=== PATIENT | male | born 1985 | race Caucasian/White ===

== ENCOUNTER 2020-04-27 00:23 | Outpatient (CLI) | payer OTHER, SELFPAY ==
[2020-04-27 18:58] LABS: SARS-CoV-2 RNA PCR Negative
== END 2020-04-27 00:24 | disposition home or self-care (01) ==
LOC: ANHCOVIDDT 00:23
PROVIDERS: PCP Family Medicine; Visit Provider Plastic Surgery
DX: Z01.812 Encounter for preprocedural laboratory examination (principal); Z20.828 Contact with and (suspected) exposure to other viral communicable diseases
CPT/HCPCS: 87635; C9803; U0003

== ENCOUNTER 2020-04-29 01:38 | Day surgery (SDC) | payer OTHER, SELFPAY ==
[2020-04-19 10:32] VITALS: BMI 21.2
--- NOTE | 2020-04-28 15:13 | HP_ITS ---
DATE OF SERVICE: 04/29/2020 PREOPERATIVE DIAGNOSIS: Left dorsal wrist ganglion cyst. HISTORY: The patient is 34. He is left-hand dominant. He is a male nava who is having pain in the dorsum of his wrist. This has been going on for more than 6 months and has dissipated for short period during that time. This mass is approximately 2 cm in diameter and is elevated, intermittently painful. No sign of infection. He has a smooth dome-shaped mass. He is aware that excision of this will produce a scar, could produce some numbness, the recovery can be longer than he is anticipating, possible need for therapy and a 10% chance of recurrence. He would like to proceed. ALLERGIES: HE HAS NO KNOWN ALLERGIES TO MEDICATION. MEDICATIONS: He takes no chronic medications. PRIOR SURGERIES: He has had no prior surgeries. He lists no chronic ailments. He is a smoker, however. REVIEW OF SYSTEMS: Otherwise negative. FAMILY HISTORY: Noncontributory. SOCIAL HISTORY: He lives in [place]. He works for [employer] PHYSICAL EXAMINATION: VITAL SIGNS: He is 6 feet 4 inches and weighs 175 pounds. GENERAL: He is alert, informative, and cooperative. HEENT: Unremarkable. CHEST: Clear to auscultation. HEART: Regular rate and rhythm by palpation. ABDOMEN: Soft and nontender. EXTREMITIES: Normal with the exception of this mass that produces tenderness with passive extension, particularly. ASSESSMENT: Ganglion cyst at the left dorsal wrist interfering with daily activities. PLAN: Excision under MAC anesthetic. D I MT: Tram
[2020-04-29] MEDS: LACTATED RINGERS 1,000 ML 30 ML IV CONT ×2 (09:55→13:13)
[2020-04-29 10:00] VITALS: BP 108/52; PULSE 58; RESP 16; TEMP 36.8; O2SAT 100
--- NOTE | 2020-04-29 10:27 | WPDANESEPPF ---
Anes - Initial Pre Proc Eval Procedure: Operation Date: 04/29/20 12:00 Proposed Procedures p Excision Left Dorsal Wrist Ganglion Cyst - Javier Herzog MD Date/Time: 04/29/20 10:27 Surgeon: Javier Herozg MD Pre Op Diagnosis: left dorsal wrist ganglion cyst Patient Data Age: 34 Gender: M Height: 6 ft 4 in Weight: 76.3 kg Last Vital Signs Temp 36.8 C 04/29/20 10:00 Pulse 58 L 04/29/20 10:00 Resp 16 04/29/20 10:00 BP 108/52 L 04/29/20 10:00 Pulse Ox 100 04/29/20 10:00 Allergies Allergy/AdvReac Type Severity Reaction Status Date / Time No Known Allergies Allergy Unverified 04/29/20 10:11 Home Medications Medication Instructions Recorded Confirmed Type No Home Medications 04/19/20 04/29/20 History Patient hx anesthesia problems: none Family hx anesthesia problems: none PMFSH Family History Family History Father Hypertension Acute myocardial infarction Social History Social History Smoking status: Light tobacco smoker Second hand tobacco smoke exposure: No Alcohol intake: never Anes - Eval Final PreProcedure Day of Procedure 04/29/20 10:27 Patient weight: normal Heart: regular rate and rhythm Lungs: clear to auscultation Airway: Mallampati scale class II Neurological: alert and oriented Last oral intake: >/= 8 hours ASA classification: II Emergent: no Anesthetic plan: proceed Anesthesia type and monitoring: general GIVS Informed Consent: The patient's anesthetic plan and its attendant risks and benefits were discussed with the patient/family/POA. Questions were solicited and answers provided to the satisfaction of the patient/family/POA.
--- NOTE | 2020-04-29 12:25 | WPDHPUPDATE1 ---
History and Physical Update Update Date/Time: 04/29/20 12:25 History and Physical has been reviewed, including an updated exam of the patient. There are NO changes in the patient's condition. Risks, benefits, and alternatives have been discussed and questions answered. Patient agrees to proceed with procedure.
[2020-04-29] MEDS: LIDO 1%/EPINEPHRINE 1:100,000 20 ML VIAL 8 ML INFILTRATE (12:34)
[2020-04-29 13:15] VITALS: BP 110/70; PULSE 47; RESP 12; O2SAT 100
--- NOTE | 2020-04-29 13:36 | PM.PROC ---
Procedure Note - Detailed Date of procedure: 04/29/20 Pre-op diagnosis: left dorsal wrist ganglion cyst Left dorsal wrist ganglion cyst Post-op diagnosis: same Procedure performed: Excision of left dorsal wrist ganglion cyst Description of procedure: The site was marked on the patient's wrist as he waited in the holding area. He was rolled to the operating room where he was placed supine on the operating table. The site was prepped and draped in the usual fashion as he was given IV sedation. The site was remarked for incision and locally infiltrated with 1% lidocaine with epinephrine. The tourniquet was inflated to 250 mmHg. The transverse incision was made and dissection was carried through the subcutaneous tissue retracting large the veins to the side. At the level of the extensor tendon the cyst was identified and dissected around its periphery. We then opened the cyst and drained it. We were able to follow the sac down to its origin at the wrist capsule. The carefully explored this area and removed all that we could without opening the joint. The area origin was over sewed with the 3-0 Ethibond [id number] suture. The subcutaneous tissue was repaired with 4-0 Monocryl. The dermis was closed with 4-0 Monocryl. A soft flexible bandaged with Coban wrap was applied. The patient is discharged with instructions in wound care and follow-up and a prescription for hydrocodone number 12 Surgeon: Javier Herzog MD
[2020-04-29 13:45] VITALS: BP 108/66; PULSE 53; RESP 12; O2SAT 100
--- NOTE | 2020-04-29 13:50 | SUR.PHASEII ---
[id number] spouse called for an update on pt, pt in outpt still sleeping, dr bhandari spoke with spouse and updated her on procedure
[2020-04-29 14:05] VITALS: BP 120/78; PULSE 56; RESP 12
== END 2020-04-29 14:21 | disposition home or self-care (01) ==
PROVIDERS: PCP Family Medicine; Visit Provider Plastic Surgery
PROC: (CPT 25111; principal; 2020-04-29 12:00)
DX: M67.432 Ganglion, left wrist (principal); F17.200 Nicotine dependence, unspecified, uncomplicated
CPT/HCPCS: 25111; A9270; J2250; J2704; J3010; J7120

== ENCOUNTER 2022-07-23 19:34 | Emergency (ER) | payer OTHER, SELFPAY ==
--- NOTE | 2022-07-23 19:36 | ED.DENTAL ---
HPI - Dental/Oral General Chief complaint: Dental/Oral Stated complaint: tooth pain Time Seen by Provider: 07/23/22 19:36 Source: patient Mode of arrival: ambulatory Limitations: no limitations History of Present Illness HPI Narrative: Mr. Ramírez is a 37-year-old male patient presenting to the clinic today with complaints dental pain x1 day He reports he noticed the swelling beginning yesterday. He complains of pain over the maxillary sinuses. Has multiple decayed teeth and broken teeth. He denies any fever or chills Related Data Allergies Allergy/AdvReac Type Severity Reaction Status Date / Time No Known Allergies Allergy Verified 07/23/22 19:44 Review of Systems Review of Systems: Pertinent positives per HPI. Patient denies any fever, chills, rash, headache, visual changes, dizziness, cough, runny nose, sore throat, shortness of breath, chest pain, palpitations, nausea, vomiting, diarrhea, constipation, abdominal pain, or any urinary issues. [facility] Family History Family History Father Hypertension Acute myocardial infarction Social History Social History Smoking status: Light tobacco smoker Second hand tobacco smoke exposure: No Alcohol intake: never Comments At the time of my signature, I reviewed and agree with the nursing past medical, surgical, social, and family history. There is no relevant family history pertinent to the patient complaint. Exam Narrative: General: Well-developed, well nourished, in no apparent distress Head: Normocephalic, atraumatic Eyes: Pupils equally round and reactive to light bilaterally, EOM intact, sclera and conjunctive clear, no discharge, lids normal Ears: TMs intact and clear, ear canals clear, no drainage, grossly hearing normal. Nose: Nares patent, no discharge, no inflammation, no sinus tenderness. Mouth: Oropharynx without lesions or masses, very poor dentition with multiple decayed and broken teeth, tender to palpation with swelling to the left upper maxillary with swollen gum and fractured gait canine tooth, no fluctuance palpable, MMM. Neck: Supple, trachea midline, no enlargement of anterior or posterior cervical nodes, no thyroid masses or goiter palpable. Cardio: Regular rate and rhythm, s1 and s2 normal, no murmur appreciated. Resp: Clear to auscultation bilaterally anteriorly and posteriorly, no rhonchi, rales, wheezing or rubs Course Course Emergency Course: Portions of this record may have been created with voice recognition software. Level of Care: Express Care Visit Vital Signs Vital signs: Vital signs reviewed MDM - Dental/Oral MDM Narrative Medical decision making narrative: At the time of exam patient was resting comfortably on the exam table. I suspect the patient has a beginning of a dental abscess. Supportive measures were discussed with the patient he voiced understanding of discharge instructions. We will send in prescription for Augmentin. Differential Diagnosis Differential diagnosis: Likely gingival abscess, dental caries, toothache, dental abscess and fracture of tooth Discharge Plan Discharge Clinical Impression: Abscess, dental Patient Disposition: Home, Self-Care Condition: Stable Instructions: Antibiotic Form, Dental Abscess (ED) Additional Instructions: May take Tylenol/Motrin as needed for pain or fever Take Augmentin as prescribed May use heat or ice pack to the affected area Follow-up with your PCP in 3 to 5 days if symptoms persist or sooner if they worsen Follow-up with your dentist as soon as possible Prescriptions: New amoxicillin-pot clavulanate 875-125 mg tablet 1 tablet PO Q12H 10 Days Qty: 20 0RF Follow-up/Referrals: UNKNOWN,DOCTOR [Non-Staff] - Time of Disposition: 19:46 Quality NIHSS Nursing Documentation ED NIHSS nursing documentation: revi
[2022-07-23 19:40] VITALS: BP 120/54; PULSE 60; RESP 16; TEMP 37.3; O2SAT 100
== END 2022-07-23 19:49 | disposition home or self-care (01) ==
PROVIDERS: Emergency Provider Nurse Practitioner Family
DX: K04.7 Periapical abscess without sinus (principal)
CPT/HCPCS: 99213; G0463

== ENCOUNTER 2023-04-02 15:14 | Emergency (ER) | payer OTHER, SELFPAY ==
[2023-04-02 15:20] VITALS: BP 114/65; PULSE 76; RESP 20; TEMP 37.4; O2SAT 99
--- NOTE | 2023-04-02 15:34 | ED.DENTAL ---
HPI - Dental/Oral General Chief complaint: Dental/Oral Stated complaint: Abcess tooth Source: patient and RN notes reviewed History of Present Illness HPI Narrative: 37-year-old male presents to urgent care with complaints of left upper dental pain and left facial swelling that started today. Patient states he has a history of dental abscesses. Patient has called and made an appointment today with [facility] for an appt. Patient denies any visual disturbance, fevers, chills, trouble swallowing, vomiting. Patient has been taking naproxen at home with minimal relief. Some parts of this dictation were generated by voice recognition software and may contain typographical and/or grammatical inaccuracies. Related Data Allergies Allergy/AdvReac Type Severity Reaction Status Date / Time No Known Allergies Allergy Verified 04/02/23 15:19 Review of Systems Review of Systems: Pertinent positives and pertinent negatives per HPI. [facility] Family History Family History Father Hypertension Acute myocardial infarction Social History Social History Smoking status: Light tobacco smoker Second hand tobacco smoke exposure: No Alcohol intake: never Comments At the time of my signature, I reviewed and agree with the nursing past medical, surgical, social, and family history. There is no relevant family history pertinent to the patient complaint. Exam Narrative: GENERAL: This is a well-nourished, well-developed patient, in no apparent distress. HEAD: normocephalic, atraumatic. EYES: Sclera clear/white. Vision is grossly intact. EARS: External ears normal, auditory canals clear and without drainage, TMs normal without perforation. Hearing grossly intact. NOSE: External nose normal with no obvious nasal discharge, nares without redness, no rhinorrhea. THROAT: Mucous membranes moist, posterior pharynx clear. MOUTH: Tooth number 11 noted to be broken adjacent swelling extending up to left upper cheek. NECK: Neck supple, non-tender without lymphadenopathy, masses or thyromegaly. CARDIOVASCULAR: Regular rate RESPIRATORY: No respiratory distress SKIN: warm, intact with no suspicious lesions or rash, good texture and turgor. NEURO: awake, alert, and oriented to person, place and time. There were no obvious focal neurologic abnormalities. Course Course Level of Care: Express Care Visit Vital Signs Vital signs: Vital Signs Temperature 99.3 F 04/02/23 15:20 Pulse Rate 76 04/02/23 15:20 Respiratory Rate 20 04/02/23 15:20 Blood Pressure 114/65 04/02/23 15:20 Pulse Oximetry 99 04/02/23 15:20 Oxygen Delivery Room Air 04/02/23 15:20 Temperature 99.3 F 04/02/23 15:20 Pulse Rate 76 04/02/23 15:20 Respiratory Rate 20 04/02/23 15:20 Blood Pressure 114/65 04/02/23 15:20 Pulse Oximetry 99 04/02/23 15:20 Oxygen Delivery Room Air 04/02/23 15:20 Reviewed MDM - Dental/Oral MDM Narrative Medical decision making narrative: Take antibiotic until it's gone. Brushing teeth at least twice daily with gentle flossing. Avoid temperature extremes when you eat. Salt gargle to rinse your mouth after every meal You may apply ice to the face to reduce pain/swelling. For pain, you may take: Tylenol 650-1000mg by mouth every 4-6 hours. Do not exceed 4000mg in 24 hours. Advil (Ibuprofen) 600 mg by mouth every 6 hours. Do not exceed 2400mg in 24 hours. Also, recommend regular dental check up one-two times a year to prevent tooth decay and other periodontal disease. Follow-up with the dentist as soon as possible. See the list provided May call Miquel @ the [address] [address] hrs: Mon-Fri 8:30-5:00 Sat 8-noon [facility] [phone] QI Aranda
== END 2023-04-02 15:54 | disposition home or self-care (01) ==
PROVIDERS: Emergency Provider Nurse Practitioner Family
DX: K04.7 Periapical abscess without sinus (principal); F17.200 Nicotine dependence, unspecified, uncomplicated
CPT/HCPCS: 99213; G0463

== ENCOUNTER 2023-05-29 13:48 | Emergency (ER) | payer OTHER, SELFPAY ==
--- NOTE | 2023-05-29 13:50 | ED.EYEPROB ---
HPI - Eye Problem General Chief complaint: Eye Problems Stated complaint: Right Eye Irritation Time Seen by Provider: 05/29/23 13:57 Source: patient, RN notes reviewed and old records reviewed Mode of arrival: ambulatory Limitations: no limitations History of Present Illness HPI Narrative: 37-year-old male presents to the [facility] with complaints of saw dust to his right eye. States that he has tried using Visine, states that is still very painful. Denies any change in vision. Unknown last tetanus Related Data Allergies Allergy/AdvReac Type Severity Reaction Status Date / Time No Known Allergies Allergy Verified 04/02/23 15:19 Review of Systems Review of Systems: All systems reviewed & are unremarkable except as noted in HPI and below Constitutional: Constitutional: Reports no additional constitutional complaints Eyes: Eyes: Reports as per HPI ENT: Reports system reviewed and no additional complaints, except as documented Cardiovascular: Cardiovascular: Reports no additional cardiovascular complaints, Denies chest pain and Denies dyspnea Respiratory: Respiratory: Reports no additional respiratory complaints, Denies chest congestion, Denies cough and Denies dyspnea Gastrointestinal: Gastrointestinal: Reports no additional gastrointestinal complaints, Denies abdominal pain, Denies nausea and Denies vomiting Musculoskeletal: Musculoskeletal: Reports no additional musculoskeletal complaints Integumentary/Breasts: Skin/Breast: Reports system reviewed and no additional complaints, except as docu Neurologic: Reports system reviewed and no additional complaints, except as documented Psychiatric: Psychiatric: Reports no additional psychiatric complaints Allergic/Immunologic: Allergic/Immunologic: Reports no additional allergic/immunologic complaints PMFSH Family History Family History Father Hypertension Acute myocardial infarction Social History Social History Smoking status: Light tobacco smoker Second hand tobacco smoke exposure: No Alcohol intake: never Comments At the time of my signature, I reviewed and agree with the nursing past medical, surgical, social, and family history. There is no relevant family history pertinent to the patient complaint. Exam Const: General: cooperative, healthy appearing, comfortable, no acute distress, well developed, alert and well nourished Nutritional Appearance: well nourished Orientation/consciousness: patient oriented x3 Limitations: no limitations HENMT: Head: normal to inspection Ears: hearing grossly normal bilaterally and external ears normal Face/Nose/Sinus: Normal external nose present, Normal nares present, Normal nasal mucous membranes and turbinates present and normal facial exam Face and sinus: normal facial exam Mouth: Yes Normal oral and palatal mucosa present, Yes lip normal and Yes moist mucous membranes Throat: posterior oropharynx normal and uvula midline Eyes: General: appearance normal, both eyes and all related structures Alignment and Position: alignment normal Periorbital: periorbital findings normal Conjunctivae: conjunctivae normal Cornea: corneas abnormal on the right fluorescein used and abrasion linear and at the following clock position (11-12); with no foreign body noted and fluorescein used Pupils: Equal, round and reactive pupils present EOM: EOMs intact bilaterally Other: Topical anesthetic was instilled with good anesthesia using 1gtt of opth anesthetic agent (tetracaine). Fluorescein stain of the R eye was performed with uptake of dye. Abrasion noted to the upper portion of the iris, no covering of pupil. NO foreign body noted to the Upper lid or lower lid, upper lid was everted and no FB or lesions were noted. NO Monse sign. Normal saline irrigation eye solution was performed and the patient tolerated the procedure well,
[2023-05-29 13:54] VITALS: BP 130/63; PULSE 58; RESP 16; TEMP 36.8; O2SAT 97
[2023-05-29] MEDS: TETANUS,DIPHTHERIA,AC PERTUSSIS ADULT (0.5 ML) BOOSTRIX IM (14:28)
== END 2023-05-29 14:30 | disposition home or self-care (01) ==
PROVIDERS: Emergency Provider Nurse Practitioner
DX: S05.01XA Injury of conjunctiva and corneal abrasion without foreign body, right eye, initial encounter (principal); T15.91XA Foreign body on external eye, part unspecified, right eye, initial encounter; Z23 Encounter for immunization
CPT/HCPCS: 90471; 90715; 99213; A9270; G0463

== ENCOUNTER 2025-05-02 20:11 | Emergency (ER) | payer OTHER, SELFPAY ==
--- OUTSIDE RECORDS SUMMARY | 2025-05-02 20:13 | XMS_ITS | Clinical Summary ---
Author Organization [facility] Address [address] [place] [address] Care Team Providers Care Deicer Inspector Pneumatic Name Role Phone No, Physician Primary Care Provider [phone] Unknown, Notinfile Unavailable Unavailable Ben Quiles MD Unavailable [phone] Allergies No known active allergies Medications naproxen (ALEVE) 220 mg tablet Take 2 tablets (440 mg total) by mouth every 12 (twelve) hours as needed for pain Active ondansetron ODT (ZOFRAN-ODT) 8 mg disintegrating tablet Take 1 tablet (8 mg total) by mouth every 8 (eight) hours as needed for nausea or vomiting 30 tablet Active Active Problems Problem Noted Date Diagnosed Date Tobacco abuse counseling 07/25/2024 Family history of ischemic heart disease 024 Sinus bradycardia 05/12/2024 Chest pain, unspecified type 05/12/2024 Encounters Date Type Department Care Team Description 04/30/2025 6:25 AM CDT - 04/30/2025 9:02 AM CDT Emergency [facility] Emergency Department [address] [place] [address] Hakan Dennis MD Concussion with unknown loss of consciousness status, initial encounter (Primary Dx) Discharge Disposition: Discharge to home or self care from Last 3 Months Medical History Medical History Date Comments Smoker Kidney stone Social History Tobacco Use Types Packs/Day Years Used Date Smoking Tobacco: Every Day Cigarettes 0.8 15 Tobacco Cessation:Ready to Q uit: Not Asked; Counseling Given: Not Answered Alcohol Use Standard Drinks/Week Comments Yes 0 (1 standard drink = 0.6 oz pur e alcohol) socially AUDIT-C Answer Date Recorded Q1: How often do you have a drink containing alc ohol? 2-4 times a month 05/12/2024 Q2: How many drinks containi ng alcohol do you have on a typical day when you are drinking? 1 or 2 05/12/2024 Q3: How often do you have si x or more drinks on one occasion? Never 05/12/2024 Personal Safety Answer Date Recorded Have you ever been in or are you currently in a harmful physical or emotional relationship or is someone making you feel afraid or unsafe? 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 Gender Identity Not on file Sexual Orientation Not on file Obstetrics History Last Filed Vital Signs Vital Sign Reading Time Taken Comments Blood Pressure 127/78 04/30/2025 8:30 AM CDT Pulse 57 04/30/2025 8:30 AM CDT Temperature 36.2 C (97.1 F) 04/30/2025 3:31 AM CDT Respiratory Rate 16 04/30/2025 7:15 AM CDT Oxygen Saturation 96% 04/30/2025 8:30 AM CDT Inhaled Oxygen Concentration - - Weight 81.6 kg (180 lb) 04/30/2025 3:31 AM CDT Height 193 cm (6' 4) 04/30/2025 3:31 AM CDT Body Mass Index 21.91 04/30/2025 3:31 AM CDT Plan of Treatment Health Maintenance Due Date Last Done Comments Depression Screening 1983 Hepatitis C Screening 1983 Varicella Vaccines (1 of 2 - 13+ 2-dose series) 1996 Hepatitis B Screening 2001 Regular Well Visit/Exam 18-64 2001 Pneumococcal vaccine <65 (1 of 2 - PCV) 2002 Covid-19 Vaccine (3 - 2023-2 5 season) 2024 07/09/2021, 06/11/2021 Influenza Vaccine (Season Ended) 2025 DTaP/Tdap/Td Vaccine (2 - Td or Tdap) 05/29/2033 05/29/2023 HPV Vaccines Aged Out No longer eligi ble based on patient's age to complete this topic Procedures Procedure Name Priority Date/Time Associated Diagnosis Comments EGFR STAT 04/30/2025 7:40 AM CDT DIFFERENTIAL AUTO STAT 04/30/2025 7:4 0 AM CDT COMPREHENSIVE METABOLIC PANEL STAT 04/30/2025 7:40 AM CDT CBC WITH AUTO DIFFERENTIAL STAT 04/30/2025 7:40 AM CDT LIPASE Add-On 04/30/2025 7:[address] HEAD WO CONTRAST ED 04/30/2025 5 :43 AM CDT from Last 3 Months Results * eGFR (04/30/2025 7:40 AM CDT) eGFR 78 >=60 mL/min/1. 73 m2 Comment: Interpretive Data Reference Interval Normal >/= 90 mL/min/1.73m2 Mildly decreased* 60 - 89 mL/min/1.73m2 Mildly to moderately decreased 45 - 59 mL/min/1.73m2 Moderately to severely decreased 30 - 44 mL/min/1.73m2 Severely decreased 15 - 29 mL/min/1.73m2 Kidney Failure < 15 mL/min/1.73m2 *Relative to young adult level Estimated glomerular filtration rate is determined by the 2020 CKD-EPI equation recommended by the National Kidney Foundation (A Unifying Approach to GFR Estimation: Recommendations of the NKF-ASK Task Force on Reassessing the Inclusion of Race in Diagnosing Kidney Disease, JASN 2020). The CKD-EPI equation should not be used for patients with unstable renal function and has not been validated in children and those over 70. Current interpretive data was last reviewed 2021. Blood 04/30/2025 7:40 AM CDT 04/30/2025 7:43 AM CDT us Hakan Dennis MD LAB BLOOD ORDERABLE S Final Result [facility] ([place]) 1 [facility] [place] [address] * (ABNORMAL) Differential, auto (04/30/2025 7:40 AM CDT) Neutrophil abs 10.81(H) 1.50 - 6.50 K/cumm Imm gran abs 0.04 0.00 - 0.10 K/cumm [facility] ([place]) Lymphocyte abs 0.86 0.80 - 3.30 K/cumm [facility] ([place]) Monocyte abs 0.16(L) 0.20 - 0.80 K/cumm [facility] ([place]) Eosinophil abs 0.02 0.00 - 0.50 K/cumm [facility] ([place]) Basophil abs 0.02 0.00 - 0.10 K/cumm [facility] ([place]) Neutrophil pct 90.8 % [facility] ([place]) Comment: Interpretive Data Percent cell count reference ranges are not reported, since discordance with absolute values may lead to misinterpretation of CBC data. Current Interpretive Data was last revised on 2018. Imm gran pct 0.3 % [facility] ([place]) Comment: Interpretive Data Percent cell count reference ranges are not reported, since discordance with absolute values may lead to misinterpretation of CBC data. Current Interpretive Data was last revised on 2018. Lymphocyte pct 7.2 % [facility] ([place]) Comment: Interpretive Data Percent cell count reference ranges are not reported, since discordance with absolute values may lead to misinterpretation of CBC data. Current Interpretive Data was last revised on 2018. Monocyte pct 1.3 % [facility] ([place]) Comment: Interpretive Data Percent cell count reference ranges are not reported, since discordance with absolute values may lead to misinterpretation of CBC data. Current Interpretive Data was last revised on 2018. Eosinophil pct 0.2 % [facility] ([place]) Comment: Interpretive Data Percent cell count reference ranges are not reported, since discordance with absolute values may lead to misinterpretation of CBC data. Current Interpretive Data was last revised on 2018. Basophil pct 0.2 % [facility] ([place]) Comment: Interpretive Data Percent cell count reference ranges are not reported, since discordance with absolute values may lead to misinterpretation of CBC data. Current Interpretive Data was last revised on 2018. Blood 04/30/2025 7:40 AM CDT 04/30/2025 7:43 AM CDT us Hakan Dennis MD LAB BLOOD ORDERABLE S Final Result [facility] ([place] 1 [facility] [place] [address] * (ABNORMAL) CBC with auto differential (04/30/2025 7:40 AM CDT) WBC 11.91(H) 3.80 - 9.90 K/cumm Hgb 14.5 13.0 - 17.5 g/dL [facility] ([place]) Hct 41.6 38.9 - 50.3 % [facility] ([place]) Plt 206 150 - 400 K/cumm [facility] ([place]) MPV 9.2 9.1 - 12.3 fL [facility] ([place]) RBC 4.78 4.30 - 5.80 M/cumm [facility] ([place]) MCV 87.0 81.3 - 96.4 fL [facility]) MCH 30.3 27.1 - 33.3 pg [facility] ([place]) MCHC 34.9 32.3 - 35.7 g/dL [facility] ([place]) RDW CV 12.5 11.1 - 14.9 % [facility]) RDW SD 40.0 35.7 - 48.1 fL [facility] ([place]) NRBC abs 0.00 0.00 - 0.01 K/cumm [facility] ([place]) Blood 04/30/2025 7:40 AM CDT 04/30/2025 7:43 AM CDT us Hakan Dennis MD LAB BLOOD ORDERABLE S Final Result [facility] ([place] 1 [facility] [place] [address] * Lipase (04/30/2025 7:40 AM CDT) Lipase 17 10 - 99 Units/L Blood 04/30/2025 7:40 AM CDT 04/30/2025 7:43 AM CDT Hakan Dennis MD LAB BLOOD ORDERABLE S Final Result [facility] ([place]) 1 [facility] [place] [address] * (ABNORMAL) Comprehensive metabolic panel (04/30/2025 7:40 AM CDT) Sodium 141 135 - 145 mmol/L Potassium, pl 4.0 3.3 - 4.9 mmol/L [facility] Comment:Moderately Hemolyzed Specimen. Results may be affected. Chloride 104 97 - 110 mmol/L [facility] ([place]) CO2 22 22 - 32 mmol/L [facility] ([place]) Anion gap 16(H) 2 - 15 mmol/L [facility] ([place]) BUN 20 6 - 25 mg/dL [facility] Creatinine 1.20 0.80 - 1.30 mg/dL [facility] ([place]) Glucose 138 70 - 199 mg/dL [facility] Comment: Interpretive Data Fasting glucose >/= 126 mg/dl is diagnostic for diabetes. Fasting is defined as no caloric intake for at least 8 hours. Fasting glucose between 100 mg/dl to 125 mg/dl is diagnostic of prediabetes. In a patient with classic symptoms of hyperglycemia or hyperglycemic crisis, a random glucose >/= 200 mg/dl is diagnostic for diabetes. In the absence of unequivocal hyperglycemia, results should be confirmed by repeat testing. The classification and Diagnosis of Diabetes Diabetes Care 202; 46: S19-S40. Current interpretive data was last revised 2022. Calcium 9.0 8.5 - 10.3 mg/dL [facility] ([place]) Bilirubin, total 0.6 0.1 - 1.2 mg/dL [facility] ([place]) Protein, pl 7.5 6.5 - 8.5 g/dL [facility] ([place]) Albumin 4.5 3.5 - 5.0 g/dL [facility] ([place]) Alk phos 94 40 - 130 Units/L [facility] ([place]) ALT 14 7 - 55 Units/L [facility] ([place]) Comment: Hemolysis present. Results may be affected. Moderately Hemolyzed Specimen AST 28 10 - 50 Units/L [facility] ([place]) Comment: Hemolysis present. Results may be affected. Moderately Hemolyzed Specimen Blood 04/30/2025 7:40 AM CDT 04/30/2025 7:43 AM CDT us Hakan Dennis MD LAB BLOOD ORDERABLE S Final Result [facility] ([place]) 1 [facility] [place] [address] * CT Head WO Contrast (04/30/2025 5:43 AM CDT) Anatomical Region Laterality Modality Head and Neck N/A Computed Tomogra phy 04/30/2025 6:03 AM CDT Narrative 04/30/2025 6:05 AM CDT EXAM DESCRIPTION: CT HEAD WO CONTRAST REASON FOR STUDY: Headache, increasing frequency or severity Patient struck his head at work yesterday. Vomiting x 1 hour. Patient unable to lay still. TECHNIQUE: Axial images acquired through the brain without intravenous contrast. Coronal and sagittal reformats were performed. Images stored on PACS. Automated mA/kV exposure control was used as a dose optimization technique for this examination and patient examination was performed in strict accordance with principles of ALARA. COMPARISON: None. FINDINGS: BRAIN: No hemorrhage, edema or mass effect. No recent infarct. Normal white matter. EXTRA-AXIAL SPACES: No fluid collections. No masses. CALVARIUM: No fracture. SINUSES/MASTOIDS: No fluid or mucosal thickening. ORBITS: No significant abnormality. OTHER: No other significant abnormality. IMPRESSION: No acute intracranial abnormality. THIS IS AN ELECTRONICALLY VERIFIED FINAL REPORT 04/30/2025 6:05 AM - Electronically signed by Fabiana Disla M.D. SN: Report ID: [id number] Reading Location: [id number] Procedure Note Fabiana Disla MD - 04/30/2025 EXAM DESCRIPTION: CT HEAD WO CONTRAST REASON FOR STUDY: Headache, increasing frequency or severity Patient struck his head at work yesterday. Vomiting x 1 hour. Patientunable to lay still. TECHNIQUE: Axial images acquired through the brain without intravenous contrast. Coronal and sagittal reformats were performed. Images storedon PACS. Automated mA/kV exposure control was used as a dose optimization technique for this examination and patient examination was performed instrict accordance with principles of ALARA. COMPARISON: None. FINDINGS: BRAIN: No hemorrhage, edema or mass effect. No recent infarct. Normal white matter. EXTRA-AXIAL SPACES: No fluid collections. No masses. CALVARIUM: No fracture. SINUSES/MASTOIDS: No fluid or mucosal thickening. ORBITS: No significant abnormality. OTHER: No other significant abnormality. IMPRESSION: No acute intracranial abnormality. THIS IS AN ELECTRONICALLY VERIFIED FINAL REPORT 04/30/2025 6:05 AM - Electronically signed by Fabiana Disla M.D. SN: Report ID: [id number] Reading Location: [id number] Deni Griffin MD IMG CT PROCEDURES Final Resul t from Last 3 Months Insurance [facility] HMO/PPO Address: [address] [address] [place] [address] [facility] H[facility]/PPO Address: [address] [place] [id number] Advance Directives For more information, please contact: [phone] * Full Code (Latest Code Status on File) Date Activated Date Inactivated Comments 05/12/2024 3:05 PM 05/13/2024 6:39 PM Care Teams Deicer Inspector Pneumatic Relationship Specialty Start Date End Date No, Physician PCP - General 07/05/17 Unknown, Notinfile 05/13/24 Ben Quiles MD [facility] [place] [id number] Consulting Physician Cardiovascular Disease 05/13/24
--- OUTSIDE RECORDS SUMMARY | 2025-05-02 20:13 | XMS_ITS | Referral Summary ---
Author Organization [facility] Address [address] [place] [address] Care Team Providers Care Certified Nutritionist Name Role Phone No, Physician Primary Care Provider [phone] Unknown, Notinfile Unavailable Unavailable Ben Quiles MD Unavailable [phone] Encounters Date Type Department Care Team Description 04/30/2025 6:25 AM CDT - 04/30/2025 9:02 AM CDT Emergency [facility] Emergency Department [address] [place] [id number] Hakan Dennis MD Concussion with unknown loss of consciousness status, initial encounter (Primary Dx) Discharge Disposition: Discharge to home or self care from Last 3 Months Allergies No known active allergies Medications naproxen (ALEVE) 220 mg tablet Take 2 tablets (440 mg total) by mouth every 12 (twelve) hours as needed for pain Active ondansetron ODT (ZOFRAN-ODT) 8 mg disintegrating tablet Take 1 tablet (8 mg total) by mouth every 8 (eight) hours as needed for nausea or vomiting 30 tablet 5 Active Active Problems Problem Noted Date Diagnosed Date Tobacco abuse counseling 07/25/2024 Family history of ischemic heart disease 024 Sinus bradycardia 05/12/2024 Chest pain, unspecified type 05/12/2024 Social History Tobacco Use Types Packs/Day Years [...] on file 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 Gender Identity Not on file Sexual Orientation Not on file Last Filed Vital Signs Vital Sign Reading [...] 04/30/2025 3:31 AM CDT Plan of Treatment Not on file Procedures Procedure Name Priority Date/Time Associated Diagnosis [...] MD LAB BLOOD ORDERABLE S Final Result [facility] ([place]) 1 [facility] [place] [address] * (ABNORMAL) Differential, auto (04/30/2025 7:40 AM CDT) Neutrophil abs 10.81(H) 1.50 - 6.50 K/cumm Imm gran abs 0.04 0.00 - 0.10 K/cumm [facility] ([place]) Lymphocyte abs 0.86 0.80 - 3.30 K/cumm [facility] ([place]) Monocyte abs 0.16(L) 0.20 - 0.80 K/cumm [facility] ([place]) Eosinophil abs 0.02 0.00 - 0.50 K/cumm [facility] ([place]) Basophil abs 0.02 0.00 - 0.10 K/cumm [facility] ([place]) Neutrophil pct 90.8 % [facility] ([place]) Comment: Interpretive Data Percent cell count reference ranges are not reported, since discordance with absolute values may lead to misinterpretation of CBC data. Current Interpretive Data was last revised on 2018. Imm gran pct 0.3 % [facility] ([place]) Comment: Interpretive Data Percent cell count reference ranges are not reported, since discordance with absolute values may lead to misinterpretation of CBC data. Current Interpretive Data was last revised on 2018. Lymphocyte pct 7.2 % [facility] ([place]) Comment: Interpretive Data Percent cell count reference ranges are not reported, since discordance with absolute values may lead to misinterpretation of CBC data. Current Interpretive Data was last revised on 2018. Monocyte pct 1.3 % [facility] ([place]) Comment: Interpretive Data Percent cell count reference ranges are not reported, since discordance with absolute values may lead to misinterpretation of CBC data. Current Interpretive Data was last revised on 2018. Eosinophil pct 0.2 % [facility] ([place]) Comment: Interpretive Data Percent cell count reference ranges are not reported, since discordance with absolute values may lead to misinterpretation of CBC data. Current Interpretive Data was last revised on 2018. Basophil pct 0.2 % [facility] ([place]) Comment: Interpretive Data Percent cell count reference ranges are not reported, since discordance with absolute values may lead to misinterpretation of CBC data. Current Interpretive Data was last revised on 2018. Blood 04/30/2025 7:40 AM CDT 04/30/2025 7:43 AM CDT us Hakan Dennis MD LAB BLOOD ORDERABLE S Final Result [facility] ([place]) 1 [facility] [place] [address] * (ABNORMAL) CBC with auto differential (04/30/2025 [...] S Final Result [facility] ([place] [place] [address] * Lipase (04/30/2025 7:40 AM CDT) Lipase 17 10 - 99 Units/L Blood 04/30/2025 7:40 AM CDT 04/30/2025 7:43 AM CDT us Hakan Dennis MD LAB BLOOD ORDERABLE S Final Result [facility] ([place] [place] [address] * (ABNORMAL) Comprehensive metabolic panel (04/30/2025 7:40 AM CDT) Sodium 141 135 - 145 mmol/L Potassium, pl 4.0 3.3 - 4.9 mmol/L [facility] ([place]) Comment:Moderately Hemolyzed Specimen. Results may be affected. Chloride 104 97 - 110 mmol/L [facility] ([place]) CO2 22 22 - 32 mmol/L [facility] ([place]) Anion gap 16(H) 2 - 15 mmol/L [facility] ([place]) BUN 20 6 - 25 mg/dL [facility] ([place]) Creatinine 1.20 0.80 - 1.30 mg/dL [facility] ([place]) Glucose 138 70 - 199 mg/dL [facility] ([place]) Comment: Interpretive Data Fasting glucose [...] classification and Diagnosis of Diabetes Diabetes Care 2021; 46: S19-S40. Current interpretive data was last [...] BLOOD ORDERABLE S Final Result [facility] [place] [facility] [place] [address] * CT Head WO Contrast (04/30/2025 5:43 [...] Electronically signed by Fabiana Disla M.D. SN: SN Report ID: [id number] Reading Location: [id number] Procedure Note Fabiana Disla MD - 04/30/2025 [...] Electronically signed by Fabiana Disla M.D. SN: SN Report ID: [id number] Reading Location: [place] [address] Deni Griffin MD IMG CT PROCEDURES Final Resul t from Last [address] [facility] H[facility]/PPO Address: [address] [address] [facility] H[facility]/PPO Address: [facility] [address] [place] [address] Advance Directives For more information, please contact: [phone] * Full Code (Latest Code Status on File) Date Activated Date Inactivated Comments 05/12/2024 3:05 PM 05/13/2024 6:39 PM Care Teams Certified Nutritionist Relationship Specialty Start Date End Date No, Physician PCP - General 07/05/17 Unknown, Notinfile 05/13/24 Ben Quiles MD [facility] [place] [address] [address] Consulting Physician Cardiovascular Disease 05/13/24
--- OUTSIDE RECORDS SUMMARY | 2025-05-02 20:13 | XMS_ITS | Clinical Summary ---
Author Organization [facility] Address [address] [place] [address] Phone Care Team Providers Care Chief Estimator Name Role Phone Provider, None Primary Care Provider Unavailabl e Medications No known medications Social History Tobacco Use Types Packs/Day Years Used Date Smoking Tobacco: Never Smokeless Tobacco: Never Tobacco Cessation:Counseling Given: Not Answered Sex and Gender Information Value Date Recorded Sex Assigned at Not on file Legal Sex Male 10:26 PM CDT Gender Identity Not on file Sexual Orientation Not on file Last Filed Vital Signs Vital Sign Reading Time Taken Comments Blood Pressure 110/48 01/10/2024 8:15 PM WOOD STOCK BLANK HANDLER Pulse 84 01/10/2024 8:30 PM WOOD STOCK BLANK HANDLER Temperature 37.2 C (99 F) 01/10/2024 6:18 PM WOOD STOCK BLANK HANDLER Respiratory Rate 18 01/10/2024 6:18 PM WOOD STOCK BLANK HANDLER Oxygen Saturation 100% 01/10/2024 8:30 PM WOOD STOCK BLANK HANDLER Inhaled Oxygen Concentration - - Weight 79.4 kg (175 lb) 01/10/2024 6:18 PM WOOD STOCK BLANK HANDLER Height 182.9 cm (6') 01/10/2024 6:18 PM WOOD STOCK BLANK HANDLER Body Mass Index 23.73 01/10/2024 6:18 PM WOOD STOCK BLANK HANDLER Plan of Treatment Health Maintenance Due Date Last Done Comments Hepatitis C Virus (HCV) Screening 1983 Human Papillomavirus (HPV) Immunization (1 - Male 3-dose series) 1998 Hepatitis B Immunization (1 of 3 - 19+ 3-dose series) 2002 SARS-COV-2 Immunization (3 - season) 2024 07/09/2021, 06/11/2021 Influenza Immunization (Seas on Ended) 2025 Respiratory Syncytial Virus (RSV) Immunization (Adult) (1 - 1-dose 75+ series) 2058 DTaP/Tdap/Td Immunization Discontinued 05/29/2023 TdaP Immunization Completed 05/29/2023 Meningococcal Immunization (ACWY) Aged Out No longer eligible based on patient's age to complete this topic Pneumococcal Immunization Combined Aged Out No longer eligible based on patient's age to complete this topic Rotavirus Immunization Aged Out No lo nger eligible based on patient's age to complete this topic Insurance [facility] Care Teams Chief Estimator Relationship Specialty Start Date End Date Provider, None [place] PCP - General 01/10/24
[2025-05-02 20:19] VITALS: BP 141/88; PULSE 56; RESP 18; TEMP 37.1; O2SAT 100
[2025-05-02] MEDS: METOCLOPRAMIDE HCL INJ 10 MG/2 ML VIAL IV PUSH (20:28)
[2025-05-02] MEDS: diphenhydrAMINE HCl INJ 50 MG/ML VIAL 25 MG IV PUSH (20:28)
[2025-05-02] MEDS: LACTATED RINGERS 1,000 ML 999 ML IV CONT (20:34)
[2025-05-02 20:35] LABS: Basophils Percent Auto 0.3 % (0.2-1.2); Hematocrit 43.1 % (42.0-52.0); Hemoglobin 15.2 g/dL (14.0-18.0); Immature Granulocyte Absolute 0.04 K/mm3 (0.00-0.031); Immature Granulocyte Percent A 0.4 % (0-0.5); Lymphocytes Absolute Auto 1.46 K/mm3 (0.9-3.2); Lymphocytes Percent Auto 13.5 % (18.3-44.2); Mean Corpuscular HGB Conc 35.3 g/dl (32-36); Mean Corpuscular Hemoglobin 29.9 pg (26-34); Mean Corpuscular Volume 84.7 fl (80-100); Mean Platelet Volume 8.6 fl (7.4-10.4); Monocytes Absolute Auto 0.8 K/mm3 (0.1-0.6); Monocytes Percent Auto 7.2 % (2.6-8.5); Neutrophils Absolute Auto 8.5 K/mm3 (1.3-6.7); Neutrophils Percent Auto 78.6 % (45.5-73.1); Platelet Count Result 199 k/mm3 (150-375); Red Blood Count 5.09 M/mm3 (4.6-6.20); Red Cell Distribution Width 12.3 % (11.5-14.5); White Blood Count 10.8 K/mm3 (4.5-10.0)
--- OUTSIDE RECORDS SUMMARY | 2025-05-02 20:35 | XMS_ITS | Clinical Summary ---
Author Organization [facility] Address [address] [place] [address] Phone Care Team Providers Care Manufacturing Supervisor 2Nd Shift Name Role Phone Provider, None Primary Care [...] Comments Blood Pressure 110/48 01/10/2024 8:15 PM HOT STICK MAN Pulse 84 01/10/2024 8:30 PM HOT STICK MAN Temperature 37.2 C (99 F) 01/10/2024 6:18 PM HOT STICK MAN Respiratory Rate 18 01/10/2024 6:18 PM HOT STICK MAN Oxygen Saturation 100% 01/10/2024 8:30 PM HOT STICK MAN Inhaled Oxygen Concentration - - Weight 79.4 kg (175 lb) 01/10/2024 6:18 PM HOT STICK MAN Height 182.9 cm (6') 01/10/2024 6:18 PM HOT STICK MAN Body Mass Index 23.73 01/10/2024 6:18 PM HOT STICK MAN Plan of Treatment Health Maintenance Due Date [...] patient's age to complete this topic Insurance [facility] Care Teams Manufacturing Supervisor 2Nd Shift Relationship Specialty Start Date End Date Provider, None [place] PCP - General 01/10/24
--- OUTSIDE RECORDS SUMMARY | 2025-05-02 20:35 | XMS_ITS | Referral Summary ---
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 Gender Identity Not on file Sexual Orientation [...] MD LAB BLOOD ORDERABLE S Final Result [facility] 1 [facility] Department [place] [address] * (ABNORMAL) Differential, auto (04/30/2025 7:40 AM CDT) Neutrophil abs 10.81(H) 1.50 - 6.50 K/cumm Imm gran abs 0.04 0.00 - 0.10 K/cumm [facility] ([facility]) Lymphocyte abs 0.86 0.80 - 3.30 K/cumm [facility] ([place]) Monocyte abs 0.16(L) 0.20 - 0.80 K/cumm [...] S Final Result [facility] 1 [facility] [place] [address] * (ABNORMAL) CBC with auto differential (04/30/2025 [...] S Final Result [facility] 1 [facility] [place] [address] * Lipase (04/30/2025 7:40 AM CDT) Lipase 17 10 - 99 Units/L Blood 04/30/2025 7:40 AM CDT 04/30/2025 7:43 AM CDT us Hakan Dennis MD LAB BLOOD ORDERABLE S Final Result [facility] 1 [facility] [place] [address] * (ABNORMAL) Comprehensive metabolic panel (04/30/2025 7:40 [...] S Final Result [facility] 1 [facility] [place] [address] * CT Head WO Contrast (04/30/2025 5:43 [...] Fabiana Disla M.D. SN: SN Report ID: [id number] Reading Location: [id number] Procedure Note Fabiana Disla MD - 04/30/2025 [...] Fabiana Disla M.D. SN: SN Report ID: [id number] Reading Location: [place] [address] Deni Griffin MD IMG CT PROCEDURES Final Resul t from Last 3 Months Insurance [facility] HMO/PPO Address: [address] [address] [facility] HMO/PPO Address: [facility] [address] [place] [address] Advance Directives For more information, please contact: [phone] * Full Code (Latest Code Status on File) Date Activated Date Inactivated Comments 05/12/2024 3:05 PM 05/13/2024 6:39 PM Care Teams Vp Global Relationship Specialty Start Date End Date No, Physician PCP - General 07/05/17 Unknown, Notinfile 05/13/24 Ben Quiles MD [facility] [place] [address] [address] Consulting Physician Cardiovascular Disease 05/13/24
--- OUTSIDE RECORDS SUMMARY | 2025-05-02 20:35 | XMS_ITS | Clinical Summary ---
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 Gender Identity Not on file Sexual Orientation [...] S Final Result [facility] 1 [facility] [place] [address] * (ABNORMAL) Differential, auto (04/30/2025 7:40 AM CDT) Neutrophil abs 10.81(H) 1.50 - 6.50 K/cumm Imm gran abs 0.04 0.00 - 0.10 K/cumm [facility] ([place]) Lymphocyte abs 0.86 0.80 - 3.30 K/cumm [facility]) Monocyte abs 0.16(L) 0.20 - 0.80 K/cumm [facility]) Eosinophil abs 0.02 0.00 - 0.50 K/cumm [facility]) Basophil abs 0.02 0.00 - 0.10 K/cumm [facility]) Neutrophil pct 90.8 % [facility] ([place] Comment: Interpretive Data Percent cell count reference ranges are not reported, since discordance with absolute values may lead to misinterpretation of CBC data. Current Interpretive Data was last revised on 2018. Imm gran pct 0.3 % [facility] Comment: Interpretive Data Percent cell count reference ranges are not reported, since discordance with absolute values may lead to misinterpretation of CBC data. Current Interpretive Data was last revised on 2018. Lymphocyte pct 7.2 % [facility] Comment: Interpretive Data Percent cell count reference ranges are not reported, since discordance with absolute values may lead to misinterpretation of CBC data. Current Interpretive Data was last revised on 2018. Monocyte pct 1.3 % [facility] Comment: Interpretive Data Percent cell count reference ranges are not reported, since discordance with absolute values may lead to misinterpretation of CBC data. Current Interpretive Data was last revised on 2018. Eosinophil pct 0.2 % [facility] Comment: Interpretive Data Percent cell count reference ranges are not reported, since discordance with absolute values may lead to misinterpretation of CBC data. Current Interpretive Data was last revised on 2018. Basophil pct 0.2 % [facility] Comment: Interpretive Data Percent cell count reference ranges are not reported, since discordance with absolute values may lead to misinterpretation of CBC data. Current Interpretive Data was last revised on 2018. Blood 04/30/2025 7:40 AM CDT 04/30/2025 7:43 AM CDT us Hakan Dennis MD LAB BLOOD ORDERABLE S Final Result [facility] 1 [facility] [place] [address] * (ABNORMAL) CBC with auto differential (04/30/2025 [...] S Final Result [facility] 1 [facility] [place] [address] * Lipase (04/30/2025 7:40 AM CDT) Lipase 17 10 - 99 Units/L Blood 04/30/2025 7:40 AM CDT 04/30/2025 7:43 AM CDT Hakan Dennis MD LAB BLOOD ORDERABLE S Final Result [facility] 1 [facility] [place] [address] * (ABNORMAL) Comprehensive metabolic panel (04/30/2025 7:40 AM CDT) Sodium 141 135 - 145 mmol/L Potassium, pl 4.0 3.3 - 4.9 mmol/L [facility] Comment:Moderately Hemolyzed Specimen. Results may be affected. Chloride 104 97 - 110 mmol/L [facility] CO2 22 22 - 32 mmol/L [facility] Anion gap 16(H) 2 - 15 mmol/L [facility] BUN 20 6 - 25 mg/dL [facility] Creatinine 1.20 0.80 - 1.30 mg/dL [facility] Glucose 138 70 - 199 mg/dL [facility] Comment: Interpretive Data Fasting glucose [...] BLOOD ORDERABLE S Final Result [facility] 1 [facility] [place] [address] * CT Head WO Contrast (04/30/2025 5:43 [...] by Fabiana Disla M.D. SN: Report ID: [id number] Reading Location: [id number] Procedure Note Fabiana Disla MD - 04/30/2025 [...] by Fabiana Disla M.D. SN: Report ID: [id number] Reading Location: [id number] Deni Griffin MD IMG CT PROCEDURES Final Resul t from Last 3 Months Insurance [facility] Advance Directives For more information, please contact: [phone] * Full Code (Latest Code Status on File) Date Activated Date Inactivated Comments 05/12/2024 3:05 PM 05/13/2024 6:39 PM Care Teams Glove Presser Relationship Specialty Start Date End Date No, Physician PCP - General 07/05/17 Unknown, Notinfile 05/13/24 Ben Quiles MD [facility] [place] [id number] Consulting Physician Cardiovascular Disease 05/13/24
[2025-05-02 20:41] LABS: Alanine Aminotransferase 21 U/L (6-50); Albumin Level 4.9 g/dL (3.5-5.1); Alkaline Phosphatase 88 U/L (38-126); Anion Gap 12 mmol/L (4-12); Aspartate Amino Transferase 35 U/L (17-59); Bilirubin,Total 1.9 mg/dL (0.2-1.3); Blood Urea Nitrogen 20 mg/dL (9-20); Calcium 9.5 mg/dL (8.4-10.2); Carbon Dioxide 26 mmol/L (22-30); Chloride 100 mmol/L (98-107); Estimated CRCL calculation 75 ml/min; Estimated Glomerular Filt Rate > 60; Glucose 108 mg/dL (65-110); Lipase 107 U/L (23-300); Potassium 3.5 mmol/L (3.4-5.0); Sodium 138 mmol/L (137-145); Total Protein 8.3 g/dL (6.3-8.2)
--- NOTE | 2025-05-02 21:15 | ED_ITS ---
HPI - Nausea/Vomiting/Diarrhea General Chief complaint: Nausea/Vomiting/Diarrhea Stated complaint: head injury on sunday, n/v Time Seen by Provider: 05/02/25 20:24 History of Present Illness HPI Narrative: Patient had a head injury a few days ago at work, and since then has had persistent nausea vomiting, he had gone to an outside hospital yesterday and had a CT brain that was normal, given prescription for Zofran, however despite the Zofran he is still quite nauseous and cannot keep anything down. Starting to have stomach pain from throwing up Related Data Allergies Allergy/AdvReac Type Severity Reaction Status Date / Time No Known Allergies Allergy Verified 05/02/25 20:23 Review of Systems 2 Review of Systems: All systems reviewed & are unremarkable except as noted in HPI and below PMFSH Family History Family History Father Hypertension Acute myocardial infarction Social History Social History Smoking status: Light tobacco smoker Second hand tobacco smoke exposure: No Alcohol intake: never Exam 2 Narrative: EXAMINATION OF ORGAN SYSTEMS/BODY AREAS: Constitutional: Vital signs per nursing GENERAL: Appears uncomfortable HEAD: Normal with no signs of head trauma. EYES: EOMI, conjunctiva normal ENT: Hearing grossly intact LUNGS: Nonlabored breathing. HEART: [Regular rate and rhythm] ABD: [Soft], no focal tenderness but diffusely uncomfortable to palpation everywhere EXT: Normal range of motion SKIN: Abrasion of forehead NEURO: [Alert and oriented x 3. No gross focal sensory or strength deficits.] PSYCH: Normal affect Course Vital Signs Vital signs: Vital Signs Temperature 98.8 F 05/02/25 20:19 Pulse Rate 56 L 05/02/25 20:19 Respiratory Rate 18 05/02/25 20:19 Blood Pressure 141/88 H 05/02/25 20:19 Pulse Oximetry 100 05/02/25 20:19 Oxygen Delivery Room Air 05/02/25 20:19 Temperature 98.8 F 05/02/25 20:19 Pulse Rate 62 05/02/25 21:53 Respiratory Rate 18 05/02/25 21:53 Blood Pressure 116/68 05/02/25 21:53 Pulse Oximetry 99 05/02/25 21:53 Oxygen Delivery Room Air 05/02/25 20:19 MDM - Nausea/Vomiting/Diarrhea MDM Narrative Medical decision making narrative: Patient presents with nausea vomiting persistently since head injury, already had normal CT head and already tried Zofran without improvement. He appears miserable here, abdomen without focal tenderness so I have lower concern for acute intra-abdominal etiology for symptoms Labs here within acceptable limits other than slightly elevated white count, he is given Reglan and Benadryl after which he took a nap and on my re-evaluation, he now feels much better. He is no longer nauseous, would like to go home at this time, I will provide a prescription for Reglan and have let him know that if his symptoms or to return here always return to the emergency room. He and Partner at bedside agreeable to plan. Concussion precautions also discussed Lab Data 05/02/25 20:27 05/02/25 20:27 Labs: Lab Results 05/02/25 Range/Units 20:27 WBC 10.8 H (4.5-10.0) K/mm3 RBC 5.09 (4.6-6.20) M/mm3 Hgb 15.2 (14.0-18.0) g/dL Hct 43.1 (42.0-52.0) % MCV 84.7 (80-100) fl MCH 29.9 (26-34) pg MCHC 35.3 (32-36) g/dl RDW 12.3 (11.5-14.5) % Plt Count 199 (150-375) k/mm3 MPV 8.6 (7.4-10.4) fl Immature Gran % (Auto) 0.4 (0-0.5) % Neut % (Auto) 78.6 H (45.5-73.1) % Lymph % (Auto) 13.5 L (18.3-44.2) % [place] % (Auto) 7.2 (2.6-8.5) % Eos % (Auto) 0.0 (0-4.4) % Baso % (Auto) 0.3 (0.2-1.2) % Lymph # (Auto) 1.46 (0.9-3.2) K/mm3 [place] # (Auto) 0.8 H (0.1-0.6) K/mm3 Eos # (Auto) 0.0 (0-0.3) K/mm3 Baso # (Auto) 0.0 (0.0-0.1) K/mm3 Abs Immat Gran (auto) 0.04 H (0.00-0.031) K/mm3 Absolute Neuts (auto) 8.5 H (1.3-6.7) K/mm3 Absolute Nucleated RBC 0.000 (0.0-0.012) K/mm3 Nucleated RBC % 0.0 (0.0-0.2) % Sodium 138 (137-145) mmol/L Potassium 3.5 (3.4-5.0) mmol/L Chloride 100 (98-107) mmol/L Carbon Dioxide 26 (22-30) mmol/L Anion Gap 12 (4-12) mmol/L BUN 20 (9-20) mg/dL Creatinine 1.21 (0.7-1.3) mg/dL Estim Creat Clear Calc 75 ml/min Estimated GFR > 60 (59 - ) Glucose 108 (65-110) mg/dL Calcium 9.5 (8.4-10.2) mg/dL Total Bilirubin 1.9 H (0.2-1.3) mg/dL AST 35 (17-59) U/L ALT 21 (6-50) U/L Alkaline Phosphatase 88 (38-126) U/L Total Protein 8.3 H (6.3-8.2) g/dL Albumin 4.9 (3.5-5.1) g/dL Lipase 107 (23-300) U/L Discharge Plan Discharge Clinical Impression: Concussion Patient Disposition: Home Condition: Stable Instructions: Acute Nausea and Vomiting (ED), Post Concussion Syndrome (ED) Additional Instructions: Please follow up with your doctor; you can always return for any further issues. Patient Language: Liberian Prescriptions: New metoclopramide HCl [Reglan] 10 mg tablet 10 mg PO Q6H PRN (Reason: nausea and vomiting) Qty: 30 0RF No Action ciprofloxacin HCl 0.3 % drops See Rx Instructions .ROUTE .COMPLEX Qty: 2.5 0RF Rx Instructions: put 1 drp in affected eye(s) every 2hr up to 8 times/day x2days; then 4 times/day x5days Follow-up/Referrals: PHYSICIAN,UNEMPLOYMENT BENEFITS CLAIMS TAKER [Primary Care Provider] -
[2025-05-02 21:53] VITALS: BP 116/68; PULSE 62; RESP 18; O2SAT 99
== END 2025-05-02 22:14 | disposition home or self-care (01) ==
PROVIDERS: Emergency Provider Emergency Medicine
DX: S06.0XAA Concussion with loss of consciousness status unknown, initial encounter (principal); F17.200 Nicotine dependence, unspecified, uncomplicated; X58.XXXA Exposure to other specified factors, initial encounter
CPT/HCPCS: 36415; 80053; 83690; 85025; 96361; 96372; 96374; 96375; 99284; J1200; J2765; J7120